=== PATIENT | male | born 1955 | race Caucasian/White ===

== ENCOUNTER 2020-07-06 14:33 | Inpatient (IN) | payer OTHER ==
[~2020-07-06] VITALS: Ht 167.6 cm; Wt 76.0 kg
[2020-07-06 14:45] VITALS: Ht 167.6 cm; Wt 76.0 kg
--- NOTE | 2020-07-06 14:54 | NUR ---
PT AMBULATED TO HALLWAY BED 1, AWAITING MD [facility].
--- NOTE | 2020-07-06 14:57 | NUR ---
DR MCLEAN AT BEDSIDE FOR MD [facility].
--- NOTE | 2020-07-06 15:06 | NUR ---
RN ANTE PARTUM AT BEDSIDE.
[2020-07-06 15:28] LABS: BASOPHIL % 0.4 % (0-2); PLATELET COUNT 342 x10^3mcL (130-400); RED CELL DISTRIBUTION WIDTH 13.1 % (11.5-14.5)
[2020-07-06 15:50] LABS: T3 TOTAL 0.68 ng/mL
[2020-07-06 15:54] LABS: CALCIUM 9.1 mg/dL (8.5-10.1); CHLORIDE SERUM 94 mmol/L (98-107); CREATININE SERUM 0.7 mg/dL (0.7-1.3); GFR1 > 60 mL/min; GLUCOSE SERUM 386 mg/dL (74-106); POTASSIUM SERUM 4.2 mmol/L (3.5-5.1); SODIUM SERUM 132 mmol/L (136-145)
[2020-07-06 16:02] LABS: ALBUMIN 3.6 g/dL (3.4-5.0); ALKALINE PHOSPHATASE 137 U/L (46-116); ALT/SGPT 40 U/L (16-63); AST/SGOT 15 U/L (15-37); BILIRUBIN TOTAL 0.3 mg/dL (0.20-1.00)
[2020-07-06 16:04] LABS: CK-MB 0.9 ng/mL (0-3.6); FREE T4 1.04 ng/dL (0.76-1.46); FREE THYROXINE INDEX 2.3 ug/dL (1.4-4.5); T4(THYROXINE) 6.9 ug/dL (4.7-13.3)
--- NOTE | 2020-07-06 16:06 | NUR ---
DR MCLEAN AT BEDSIDE TO COLLECT WOUND CULTURE.
[2020-07-06 16:07] LABS: microscopic required? NO
[2020-07-06 16:09] LABS: TOTAL PROTEIN, SERUM 8.5 g/dL (6.4-8.2)
[2020-07-06 16:14] LABS: ERYTHROCYTE SED RATE 86 mm/hr (0-20)
[2020-07-06 16:30] LABS: UA SPECIFIC GRAVITY 1.015 (1.005-1.035); urine erythrocyte NEGATIVE (NEGATIVE)
[2020-07-06] MEDS ORDERED: FORTAMET500 M1 PO (16:42)
[2020-07-06] MEDS ORDERED: ACTOS15 M1 PO (16:43)
--- NOTE | 2020-07-06 17:06 | NUR ---
PT IN [facility] IN POSITION OF COMFORT, NO DISTRESS.
--- NOTE | 2020-07-06 17:50 | NUR ---
RESIDENT AT BEDSIDE TO SPEAK WITH PT.
--- NOTE | 2020-07-06 17:56 | NUR ---
REPORT GIVEN TO JASMINA CARRANZA TO ASSUME CARE.
[2020-07-06 18:44] VITALS: BP 151/89
--- NOTE | 2020-07-06 18:46 | NUR ---
RECEIVED PT FROM ER, ON A GUERNY. REPORT GIVEN BY DIMITRIOS FREEDMAN. TELE [address] READING NSR. IVF RUNNING AT 100CC/HOUR TO RAC. SITE WNL. PT IS AAOX4. LUNG SOUNDS CTA. ABDOMEN SOFT, NONTENDER, NONDISTENDED. BOWEL SOUNDS ACTIVE X4. DENIES N/V, DIARRHEA AND CONSTIPATION. DISTAL PULSES PALPABLE. PT HAS R FOOT DIABETIC ULCER. PT HAS NEW DRESSING APPLIED IN E.D. NO PICTURE OF WOUND TAKEN AT THIS TIME. WILL ENDORSE TO DEANDRE SHIFT ONCOMING RN THAT PT'S NEEDS PICTURE WHEN FIRST DRESSING CHANGE IS PERFORMED. PT STATES HE BELIEVES WOUND FIRST OCCURED FROM INSECT BITE. PT DENIES PAIN. CALL LIGHT WITHIN REACH. BED IN LOWEST POSITION. WILL ENDORSE ALL CARE TO DEANDRE RN.
--- NOTE | 2020-07-06 18:55 | NUR ---
IVF NS AT 100CC/ML STARTED AT THIS TIME.
--- NOTE | 2020-07-06 19:35 | NUR ---
ENDORSED CALL CARE TO MARIANGEL FREEDMAN.
--- NOTE | 2020-07-06 19:46 | NUR ---
PT IN BED RESTING, PT DENIES PAIN AT THIS TIME. PT STATING HE IS HUNGRY, WILL CALL RESIDENT TO OBTAIN A DIET ORDER, THERE IS NONE AT THIS TIME. PT HAS NO OTHER CONCERNS, WILL FOLLOW UP. CALL LIGHT IN REACH.
[2020-07-06 20:22] LABS: MAGNESIUM 2.5 mg/dL (1.8-2.4); PHOSPHOROUS 3.6 mg/dL (2.5-4.9)
[2020-07-06 20:42] VITALS: BP 122/75
[2020-07-06] MEDS ORDERED: AMP500 PO (21:35)
[2020-07-06] MEDS ORDERED: V5 PO (21:36)
[2020-07-06] MEDS ORDERED: ASPIR 8181 MG PO (21:37)
[2020-07-07 05:52] VITALS: BP 131/75
--- NOTE | 2020-07-07 06:30 | NUR ---
PT RESTING IN BED, REPORTING PAIN ON HIS FOOT, /10. TYLENOL GIVEN, WILL REASSESS. IV ANTIBIOTICS INFUSING WELL. PT HAS NO OTHER CONCERNS AT THIS TIME. PT SLEPT WELL THROUGHOUT THE NIGHT WITHOUT ANY EPISODES OF ACUTE DISTRESS. ALL NEEDS WERE MET DURING THIS SHIFT. CALL LIGHT IN REACH, WILL ENDORSE CARE TO AM NURSE.
[2020-07-07 07:01] LABS: BASOPHIL % 0.3 % (0-2); PLATELET COUNT 318 x10^3mcL (130-400)
--- NOTE | 2020-07-07 07:15 | NUR ---
RECEIVED REPORT FROM NIGHT RN Pt LYING IN BED A&O X4 RECEIVED ON RA NOP S/S OF ANY DISTRESS. DRESSING TO RIGHT FOOD C/D/I. Pt STATED "TYLENOL HELPED THE PAIN A LITTLE" WILL FOLLOW UP WITH DR FOR MORE PAIN MEDS. IV ON RAC PATENT AND INTACT. ALL NEEDS ATTENDED TO AT THIS TIME. WILL CONTINUE TO MONITOR.
[2020-07-07 07:51] LABS: CALCIUM 8.6 mg/dL (8.5-10.1); CARBON DIOXIDE 28.9 mmol/L (21-32); CHLORIDE SERUM 102 mmol/L (98-107); CREATININE SERUM 0.6 mg/dL (0.7-1.3); GFR1 > 60 mL/min; GLUCOSE SERUM 194 mg/dL (74-106); MAGNESIUM 2.2 mg/dL (1.8-2.4); PHOSPHOROUS 3.2 mg/dL (2.5-4.9); SODIUM SERUM 139 mmol/L (136-145)
[2020-07-07 08:53] VITALS: BP 123/64
--- NOTE | 2020-07-07 12:41 | NUR ---
BEDSIDE BLOOD SUGAR 355 ADMINISTERED 15 UNITS REGULAR INSULIN Pt TOLERATED WELL. Pt STATED PAIN IS TOLERABLE DENIES ANY MEDS. ALL NEEDS ATTENDED TO. WILL CONTINUE TO MONITOR.
[2020-07-07 12:47] VITALS: BP 135/75
--- NOTE | 2020-07-07 15:21 | NUR ---
Consent for surgical debridement of the right foot signed Pt verbalized ubderstanding all questions and concerns addressed.
--- NOTE | 2020-07-07 15:34 | NUR ---
PROVIDED LIDOCAINE TO DR KUO FOR DEBRIDEMENT OF RIGHT FOOT AT BEDSIDE
--- NOTE | 2020-07-07 16:30 | NUR ---
ADMINISTERED TYLENOL FOR 6/10 PAIN IN RIGHT FOOT AFTER DEBRIDEMENT Pt TOLERATED WELL. WILL CONTINUE TO MONITOR
[2020-07-07 17:17] VITALS: BP 129/75
--- NOTE | 2020-07-07 18:44 | NUR ---
Pt LYING IN BED IV INFUSING ON LAC PATENT AND INTACT. DRESSING ON RIGHT FOOT C/D/I Pt DENIES ANY PAIN. ALL NEEDS ATTENDED TO. TELE MONITOR IN PLACE. WILL ENDORSE CARE TO NIGHT RN
--- NOTE | 2020-07-07 19:20 | NUR ---
RECEIVED PATIENT IN BED AWAKE, ALERT AND ORIENTED WITH NO SIGN OF DISTRESS NOTED. C/O RIGHT FOOT PAIN AND TO MEDICATE AFTER ROUNDS. DRESSING TO RT FOOT CDI, DRESSING NEWLY CHANGED BY AM SHIFT. TELE#24 NSR ON MONITOR. IV TO RAC INTACT AND INFUSING WELL WITH NO REDNESS AND NO SWELLING NOTED TO SITE. WILL CONTINUE TO MONIOTR. CALL LIGHT WITHIN REACH.
--- NOTE | 2020-07-07 19:37 | NUR ---
C/O RIGHT FOOT PAIN, PATIENT REQUESTED TYLENOL, GIVEN TYLENOL 650MG PO PRESCRIBED. WILL CONTINUE TO MONITOR.
[2020-07-07 21:38] VITALS: BP 153/81
[2020-07-07 21:57] LABS: AMPHETAMINE QUAL UR NONE DETECTED (See below)
--- NOTE | 2020-07-07 23:35 | NUR ---
C/O RT FOOT PAIN NORCO 1 TAB PO GIVEN PRESCRIBED. WILL CONTINUE TO MONITOR, PER PATIENT TYLENOL 650MG PO NOT WORKING WITH HIS PAIN.
--- NOTE | 2020-07-08 00:20 | NUR ---
PER PATIENT RELIEF NOTED AFTER PAIN MEDS WAS GIVEN. WILL CONTINUE TO MONITOR.
--- NOTE | 2020-07-08 05:21 | NUR ---
CHECKED AT INTERVALS FOR NEEDS AND SAFETY. C/O RT FOOT PAIN X2 THE ENTIRE SHIFT AND MEDICATED PRESCRIBED. ALL NEEDS ATTENDED.
[2020-07-08 05:36] VITALS: BP 129/71
[2020-07-08 06:35] LABS: BASOPHIL % 0.3 % (0-2); PLATELET COUNT 314 x10^3mcL (130-400); RED CELL DISTRIBUTION WIDTH 13.2 % (11.5-14.5)
[2020-07-08 07:01] LABS: CALCIUM 8.3 mg/dL (8.5-10.1); CARBON DIOXIDE 30.1 mmol/L (21-32); CHLORIDE SERUM 102 mmol/L (98-107); CREATININE SERUM 0.7 mg/dL (0.7-1.3); GFR1 > 60 mL/min; GLUCOSE SERUM 250 mg/dL (74-106); PHOSPHOROUS 3.1 mg/dL (2.5-4.9); POTASSIUM SERUM 3.7 mmol/L (3.5-5.1); SODIUM SERUM 138 mmol/L (136-145)
--- NOTE | 2020-07-08 07:45 | NUR ---
RECEIVED PT IN BED. ASSESSED AND DOCUMENTED. STABLE. DENIES ANY PAIN. SAFTEY PRECAUTIONS ARE IN PLACE. WILL MONITOR.
[2020-07-08 09:31] VITALS: BP 131/70
[2020-07-08] MEDS ORDERED: INSULIN SYRING1 EA29 SQ (13:17)
[2020-07-08] MEDS ORDERED: BLOOD LANCETS1 EACH TOP (13:18)
[2020-07-08] MEDS ORDERED: GLUCOSE TEST S1 EACH MC (13:19)
--- NOTE | 2020-07-08 13:30 | NUR ---
PT RESTING IN BED COMFORTABLY, DENIES ANY PAIN. STABLE. NO DISTRESS NOTED. DRESSING TO RT FOOT CLEAN AND DRY.
[2020-07-08 14:31] VITALS: BP 126/71
[2020-07-08 18:28] VITALS: BP 130/70
--- NOTE | 2020-07-08 19:15 | NUR ---
PT RESTING IN BED COMFORTABLY, STABLE. DENIES ANY PAIN. NO DISTRESS NOTED. DRESSING TO RT FOOT CLEAN AND DRY. GAVE REPORT TO STEPDOWN NURSE NURSE.
--- NOTE | 2020-07-08 20:02 | NUR ---
RECEIVED PATIENT IN BED AWAKE, ALERT AND ORIENTED WITH NO C/O RIGHT FOOT PAIN AT THIS TIME. BREATHING EASY AND NONLABOR SATTING AT 98% RA. TELE#24 NSR ON MONITOR. DRESSING TO RT FOOT CDI. IV TO RAC INTACT AND INFUSING WELL WITH NO SWELLING AND NO REDNESS NOTED TO SITE. WILL CONTINUE TO MONITOR. CALL LIGHT WITHIN REACH.
[2020-07-08 22:27] VITALS: BP 130/75
--- NOTE | 2020-07-08 23:54 | NUR ---
STILL AWAKE WATCHING TELEVISION IN A POSITION OF COMFORT. NO INDICATION OF PAIN AND DISCOMFORT NOTED.
--- NOTE | 2020-07-09 05:10 | NUR ---
NO SIGNIFICANT CHANGES IN CONDITION NOTED. SLEPT FAIRLY, DENIES RT FOOT PAIN THROUGHOUT THE SHIFT. DRESSING TO RT FOOT CDI. ALL NEEDS ATTENDED.
[2020-07-09 06:30] VITALS: BP 142/71
--- NOTE | 2020-07-09 07:22 | NUR ---
RECEIVED IN NO ACUTE DISTRESS. AWAKE, ALERT AND OREINTED. NO C/O PAIN OR DISCOMFORT AT THIS TIME. VS WNL. IVF INFUSING WELL AND SITE CLEAR. CALL LIGHT WITHIN REACH. WILL CONTINUE WITH PLAN OF CARE.
[2020-07-09 08:24] VITALS: BP 122/67
[2020-07-09] MEDS ORDERED: DULOXETINE HYDR30 MG PO (09:46)
[2020-07-09] MEDS ORDERED: HUMULIN R100 U/1 M1 SC ×4 (09:47→14:05)
[2020-07-09] MEDS ORDERED: LANTI SQ ×2 (09:48→12:44)
[2020-07-09] MEDS ORDERED: ACCU-CHEK GUID1 EAC1 MC (09:49)
[2020-07-09] MEDS ORDERED: ALCOHOL PREP70% TOP (09:50)
[2020-07-09 11:53] VITALS: BP 146/74
[2020-07-09] MEDS ORDERED: NORCO1 TA2 PO (13:36)
--- NOTE | 2020-07-09 14:02 | NUR ---
PT WILL BE DC'D HOME THIS PM. PER DR. FIORE, NOT TO REMOVE OR CHANGE DRESSING TO RT FOOT. PT WILL F/U WITH PODIATRY ON TUESDAY TO CHANGE DRESSING. NO DISCHARGE PHOTO TAKEN PER PROTOCOL. PT WILL BE INSTRUCTED TO F/U WITH [facility] [employer] FOR WOUND CARE.
--- NOTE | 2020-07-09 16:24 | NUR ---
PT DC'D HOME IN NO ACUTE DISTRESSS. AWAKE, ALERT AND ORIENTED. VS STABLE. DC INSTRUCTIONS RREVIEWED WITH PT. INSTRUCTIONS ON SELF INSULIN ADM. GIVEN. PT ABLE TO DEMONSTRATE WELL HOW TO DRAW AND INJECT HIMSELF WITH INSULIN. WOUND TO RLE WITH DRESSING INTACT. PT INSTRUCTED TO KEEP SITE CLEAN AND DRY TILL HE FOLLOWS UP WITH PODIATRY THIS TUESDAY. CRUTCHES PROVIDED ORDERED. HL REMOVED AND SITE CLEAR. NO C/O PAIN OR DISCOMFORT AT THE TIME OF DC. PERSONAL BELONGINGS TAKEN HOME.
== END 2020-07-09 16:11 | disposition home or self-care (01) | DRG 638 ==
LOC: ED 14:33 → MU 16:39 → DU 16:39 → MU 18:22 → DU 19:04
PROVIDERS: Specialist; ADMIT Family Medicine; ATTEND Family Medicine
PROC: 0HDMXZZ Extraction of Right Foot Skin, External Approach (ICD-10-PCS; principal; 2020-07-07)
PROC: 0H9MXZZ Drainage of Right Foot Skin, External Approach (ICD-10-PCS; 2020-07-07)
DX: E11.621 Type 2 diabetes mellitus with foot ulcer (principal); L02.91 Cutaneous abscess, unspecified; L02.611 Cutaneous abscess of right foot; E11.65 Type 2 diabetes mellitus with hyperglycemia; E11.21 Type 2 diabetes mellitus with diabetic nephropathy; W57.XXXA Bitten or stung by nonvenomous insect and other nonvenomous arthropods, initial encounter; Z90.49 Acquired absence of other specified parts of digestive tract; Z79.82 Long term (current) use of aspirin; Z79.899 Other long term (current) drug therapy; Z87.891 Personal history of nicotine dependence; Y93.89 Activity, other specified; Y92.89 Other specified places as the place of occurrence of the external cause; Y99.8 Other external cause status
CPT/HCPCS: 36600; 82962; 84439; G0378; J1815; J1885; J2001; J2543; J3370; J7030; J7050; Q0092